=== PATIENT | male | born 1970 | race Caucasian/White ===

== ENCOUNTER 2023-10-29 14:52 | Outpatient (AMB) | payer OTHER, SELFPAY ==
--- NOTE | 2023-10-29 14:58 | A.OFFVIS_ITS ---
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 Patient reports locking and catching in his 2nd, 3rd, 4th and 5th digit for years that has been recently getting worse. Occasional numbness and tingling. States his finger becomes stuck and he will have to push back up with his other hand. Denies injury. No previous tx. 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 He claims to have had years of locking and catching in his 2nd, 3rd, 4th, and 5th digit which has been recently getting worse. He denies any previous treatment. He reports occasional numbness and tingling mostly in the left hand. He states that he has to use his other hand to push his finger back up when it gets stuck. He denies any injury. He denies taking any pain medication. He denies any allergies to medications. 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 Review of Systems Const All systems reviewed & are unremarkable except as noted in HPI and below Physical Exam Const General: cooperative, healthy appearing, comfortable and no acute distress Orientation/consciousness: patient oriented x3 Neck Neck: Yes normal visual inspection and Yes no JVD Chest Chest palpation & inspection: normal inspection of the chest Resp Effort & Inspection: normal respiratory effort Auscultation: clear to auscultation bilaterally, crackles (no), rales (no), rhonchi (no) and wheezes (no) Cardio Jugular venous distension: no JVD Rate: regular rate Rhythm: regular rhythm Heart sounds: S1 normal heart sound present, S2 normal heart sound present, Murmur heart sound present (no) and Rub heart sound present (no) Neuro General: patient oriented x3 Extrem Other: Trigger finger: Tender nodule along the A1 janae with active catching and locking on 2nd, 3rd, 4th, and 5th. NVI General: Yes normal to inspection, Yes no pedal edema and Yes no calf tenderness Psych Appearance: grossly normal Mental Status: mental status grossly normal Speech and movement: Normal speech and movement present Assessment & Plan Assessment & Plan (1) Trigger finger: Code(s): M65.30 - Trigger finger, unspecified finger Category: Medical Plan We discussed options which include physical therapy and modification of activities. At this time, he will proceed with home exercises which I demonstrated in the office today. He was also given a prescription for naproxen to take twice a day, and if symptoms persist or worse thing or where he has active repetitive catching or locking, he will contact our office otherwise, follow up as needed. Medications: New naproxen 500 mg PO BID 60 tabs 3RF 30 days S93.409A - Sprain of unspecified ligament of unspecified ankle, initial encounter Patient Instructions: Scribed for Rufina Ayala PA-C, by Kaylah Pryor medical billing supervisor, on 10/29/2023 at 3:00 PM EST. IRufina PA-C, have personally reviewed and agree with the information entered by the scribe. Coding Level of Care Code New Pt Level 3 (39599) Diagnoses Trigger finger M65.30
== END 2023-10-29 16:35 | disposition home or self-care (01) ==
PROVIDERS: PCP Nurse Practitioner Family; Visit Provider Physician Assistant
DX: M65.30 Trigger finger, unspecified finger (principal)
CPT/HCPCS: 99203

== ENCOUNTER → 2023-10-29 14:52 | Outpatient (BNVA) | payer OTHER, SELFPAY | PROVIDERS: PCP Nurse Practitioner Family; Visit Provider Physician Assistant | DX: M65.322 Trigger finger, left index finger (principal); M65.332 Trigger finger, left middle finger; M65.342 Trigger finger, left ring finger; M65.352 Trigger finger, left little finger; N20.0 Calculus of kidney; N20.2 Calculus of kidney with calculus of ureter | CPT/HCPCS: 99202 ==

== ENCOUNTER 2023-11-04 12:10 | Outpatient (REF) | payer OTHER, SELFPAY | END 2023-11-04 12:11 | disposition home or self-care (01) | LOC: HO.LNP 12:10 | PROVIDERS: PCP Nurse Practitioner Family; Visit Provider Surgery | DX: L72.11 Pilar cyst (principal) | CPT/HCPCS: 11422; 88304; 99202 ==

== ENCOUNTER 2023-11-04 12:10 | Outpatient (AMB) | payer OTHER, SELFPAY ==
--- NOTE | 2023-11-04 12:48 | MHC.OFFVIS ---
Vital Signs 11/04/23 12:50 Height 51 ft Weight 248 lb BMI 0.5 BP 137/74 Blood Pressure Location Lt brachial Position Sitting Pulse 80 Intake Visit Reasons: Lipoma vs cyst~ Lt scalp Intake Note: Patient is seen in office for evaluation and treatment of a left scalp cyst. 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 His increasing in size, become more symptomatic. He would like to have removed. He has no such lesions elsewhere. 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 All questions answered. Consent signed After appropriate positioning, patient underwent 1% lidocaine and Betadine prep and a longitudinal incision was made over the left temporal cyst which was uneventfully enucleated with dimensions as described above. Specimen sent to pathology. Wound was irrigated, secured hemostasis, and closed using interrupted 2-0 Prolene suture followed by bacitracin. Patient tolerated procedure well 03256-Midpasmc scalp/neck/hands/feet/genitalia 2.1cm-3cm Procedure code (CPT) selection complete Office Meds lidocaine 1 %-epinephrine 1:100,000 injection solution Performing Provider: Sly Mark MD Performing Location: [facility] [place] [facility] Administered by: Sly Mark MD on 11/04/23 13:04 Dose Route Admin Location Dispensed Lot Number Expiration Date NDC [employer] 10 mL Infiltration 10 mL Assessment & Plan Assessment & Plan (1) Pilar cyst of scalp: Code(s): L72.11 - Pilar cyst Category: Surgical Plan: Patient was given local instructions, including bacitracin, ice periodically, may shower tomorrow, and no strenuous activities, and will see me as directed or p.r.n.. All questions answered. Orders: Orders AMB Excision Today L72.11 - Pilar cyst Medications: New lidocaine-epinephrine 1 %-1:100,000 10 mL Infiltration ONCE 30 mL 0RF L72.11 - Pilar cyst Coding Level of Care Code New Pt Level 5 (71918) Diagnoses Pilar cyst of scalp L72.11 CPT Codes Scalp/Neck/Hands/Feet/Genetalia - CPT: 16276-Jigvmgei scalp/neck/hands/feet/genitalia 2.1cm-3cm ([id number])
[2023-11-04 12:50] VITALS: BP 137/74; PULSE 80
== END 2023-11-04 13:03 | disposition home or self-care (01) ==
LOC: HO.HGS 12:10
PROVIDERS: PCP Nurse Practitioner Family; Visit Provider Surgery
DX: L72.11 Pilar cyst (principal)
CPT/HCPCS: 11422; 99204

== ENCOUNTER 2023-11-11 13:40 | Outpatient (AMB) | payer OTHER, SELFPAY ==
--- NOTE | 2023-11-11 13:47 | MHC.OFFVIS ---
Intake Visit Reasons: one wk post exc left scalp cyst Intake Note: Patient here s/p Lt scalp cyst excision. Reports incision healing well. Patient c/o: tenderness while shampooing. 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 He has no wound issues or complaints. Pathology is benign. 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 Sutures uneventfully removed. Assessment & Plan Assessment & Plan (1) Postop check: Code(s): Z09 - Encounter for follow-up examination after completed treatment for conditions other than malignant neoplasm Category: Surgical Plan Patient has been given local instructions, and otherwise follow-up p.r.n.. All questions answered. Coding Level of Care Code Global (28712) Diagnoses Postop check Z09
== END 2023-11-11 13:55 | disposition home or self-care (01) ==
PROVIDERS: PCP Nurse Practitioner Family; Visit Provider Surgery
DX: Z09 Encounter for follow-up examination after completed treatment for conditions other than malignant neoplasm (principal)
CPT/HCPCS: 99024

== ENCOUNTER → 2023-11-11 13:40 | Outpatient (BNVA) | payer OTHER, SELFPAY | PROVIDERS: PCP Nurse Practitioner Family; Visit Provider Surgery | DX: Z09 Encounter for follow-up examination after completed treatment for conditions other than malignant neoplasm (principal) | CPT/HCPCS: 99212 ==